=== PATIENT | male | born 1945 | race African-American/Black ===

== ENCOUNTER 2019-06-17 23:25 | Inpatient (IN) | payer MEDICARE, OTHER ==
[~2019-06-17] VITALS: Ht 185.4 cm; Wt 116.1 kg
[2019-06-18] MEDS ORDERED: IV NS 0.9% 500 ML BAG IV ONE
[2019-06-18 00:06] LABS: BASOPHILS # (AUTO) 0.2 /CMM (0.0-0.2); BASOPHILS % (AUTO) 1.7 % (0.0-2.0); EOSINOPHILS % (AUTO) 0.5 % (0.0-6.0); HEMATOCRIT 45 % (39-51); HEMOGLOBIN 14.8 g/dL (13.5-17.5); LYMPHOCYTES # (AUTO) 2.4 /CMM (0.8-4.8); LYMPHOCYTES % (AUTO) 16.7 % (20.0-44.0); MEAN CORPUSCULAR HGB CONC 33 g/dl (31.0-36.0); MEAN CORPUSCULAR VOLUME 89 fL (80-96); MONOCYTES # (AUTO) 1.1 /CMM (0.1-1.30); MONOCYTES % (AUTO) 7.6 % (2.0-12.0); NEUTROPHILS # (AUTO) 10.4 /CMM (1.8-8.9); NEUTROPHILS % (AUTO) 73.5 % (43.0-81.0); PLATELET COUNT (AUTO) 275 /CMM (150-450); RED BLOOD CELL COUNT(AUTO) 5.08 MIL/uL (4.5-6.0); WHITE BLOOD COUNT (AUTO) 14.1 K/uL (4.3-11.0)
--- NOTE | 2019-06-18 00:10 | NUR ---
PATIENT CAME TO ER BED 10 C/O 2x UNWITNESS FALL. PATIENT STATES HE WAS HOLDING ONTO THE HANDLE OF THE REFRIDGERATOR. DENIES ANY PAIN. AAOX4. NO SOB. BREATHING EVENLY AND UNLABORED ON ROOM AIR. CONNECTED TO MONITOR. Addendum: 06/18/19 at 0011 by MICHEL DENIES HITTING HEAD OR LOSING CONSCIOUSNESS.
[2019-06-18 00:20] LABS: ALANINE AMINOTRANSFERASE 31 U/L (12-78); ALBUMIN 3.8 g/dL (3.4-5.0); ALKALINE PHOSPHATASE 135 U/L (46-116); ASPARTATE AMINOTRANSFERASE 19 U/L (15-37); BILIRUBIN,DIRECT 0.1 mg/dL (0.0-0.2); BILIRUBIN,TOTAL 0.3 mg/dL (0.2-1.0); CALCIUM, SERUM 9.7 mg/dL (8.5-10.1); CARBON DIOXIDE 31 mmol/L (21-32); CHLORIDE 94 mmol/L (98-107); CREATININE 1.7 mg/dL (0.6-1.3); POTASSIUM 4.2 mmol/L (3.5-5.1); SODIUM SERUM 130 mmol/L (136-145); TOTAL PROTEIN, SERUM 8.2 g/dL (6.4-8.2); UREA NITROGEN, BLOOD 31 mg/dL (7-18)
[2019-06-18 00:22] LABS: GLUCOSE 410 mg/dL (74-106)
--- NOTE | 2019-06-18 00:25 | NUR ---
PATIENT RETURNED FROM CT
[2019-06-18] MEDS ORDERED: MAG HYDROX/AL HYDROX/SIMETH 30 ML UDC PO PRN (01:30)
[2019-06-18] MEDS ORDERED: Z GUARD REMEDY 2 OZ OINT TP PRN (01:30)
[2019-06-18] MEDS ORDERED: IV NS 0.9% 1,000 ML IV PRN (01:30)
[2019-06-18] MEDS ORDERED: ACETAMINOPHEN 325 MG TABLET PO PRN (01:30)
[2019-06-18] MEDS ORDERED: DEXTROSE 50%-WATER 50 ML DISP.SYRIN IV PRN (01:30)
[2019-06-18] MEDS ORDERED: ONDANSETRON HCL/PF 4 MG/2 ML VIAL IVP PRN (01:30)
[2019-06-18] MEDS ORDERED: MAGNESIUM HYDROXIDE 30 ML UDC PO PRN (01:30)
--- NOTE | 2019-06-18 01:50 | NUR ---
REPORT GIVEN TO JAX STRICKLAND FOR KEERTHI.
[2019-06-18 02:00] VITALS: BP 134/79
--- NOTE | 2019-06-18 02:00 | NUR ---
FOOTWEAR SALES LEADER NOTES Received patient from ER via gurney accompanied by 2 ER staffs. Admitted to tele 326-2 due to syncope under the service of TERELL Ojeda. Transferred to bed comfortably. Admission routine done. Pt's belongings inventory completed by the assigned SHUTTLE FIXER. Initial skin assessment done, no identified skin issues at this time. Home meds updated to the system ready for med recon. Admission orders noted and carried out. Patient denies any discomfort at this time. On tele monitor with NSR with BBB noted. Kept on bed clean, dry and comfortable. Call light within easy reach. On fall, aspiration and seizure precautions. Will continue to monitor accordingly.
[2019-06-18 02:44] LABS: APPEARANCE,URINE CLEAR (CLEAR); BILIRUBIN,URINE NEGATIVE (NEGATIVE); BLOOD, URINE SMALL Ery/uL (NEGATIVE); COLOR,URINE YELLOW (YELLOW); KETONES,URINE NEGATIVE (NEGATIVE); LEUKOCYTE ESTERASE ,URINE NEGATIVE (NEGATIVE); NITRITE, URINE NEGATIVE (NEGATIVE); PH,URINE 5.5 (5.0-8.0); PROTEIN,URINE NEGATIVE (NEGATIVE); UGLUCOSE >=1000 mg/dL (NEGATIVE); UROBILINOGEN,URINE 0.2 EU/dL (0.2)
[2019-06-18] MEDS ORDERED: NAPR220C15 PO (02:47)
[2019-06-18] MEDS ORDERED: ACET325C7 PO (02:47)
[2019-06-18] MEDS ORDERED: CHOL200076 PO (02:47)
[2019-06-18] MEDS ORDERED: HYDR25TA4 PO (02:47)
[2019-06-18] MEDS ORDERED: LISI10TA5 PO (02:47)
[2019-06-18] MEDS ORDERED: ATEN25TA PO (02:47)
[2019-06-18] MEDS ORDERED: GABA-534 PO (02:47)
[2019-06-18] MEDS ORDERED: LINA5TAB PO (02:47)
[2019-06-18] MEDS ORDERED: CLOP75TA15 PO (02:47)
[2019-06-18] MEDS ORDERED: INSU100V3 IJ (03:10)
[2019-06-18] MEDS ORDERED: INSU100V7 SQ (03:10)
[2019-06-18] MEDS ORDERED: LATA2.5D7 EACHEYE (03:11)
[2019-06-18 03:27] LABS: RBC,URINE 0-2 /HPF (0-2)
[2019-06-18 03:28] LABS: BACTERIA,URINE Few /HPF (None Seen); SQUAMOUS EPITHELIAL CELL,UR Rare /HPF (None Seen)
[2019-06-18 04:00] VITALS: BP 117/62
[2019-06-18] MEDS: BLOOD SUGAR DIAGNOSTIC 1 EACH STRIP IN SCH ×5 (05:45→21:12)
[2019-06-18] MEDS: INSULIN REGULAR, HUMAN 100 UNIT/ML 3 ML VIAL SQ PRN ×5 (06:17→21:15)
--- NOTE | 2019-06-18 06:37 | NUR ---
RN CLOSING NOTES Patient on bed, easily awaken. No complaints made at this time. All nursing needs attended, due meds given as ordered. Kept on bed clean, dry and comfortable. Call light within easy reach. On fall and aspiration precautions. Endorsed.
--- NOTE | 2019-06-18 07:30 | NUR ---
Tele/RN Opening Note Patient received AO x 3-4, able to responds all stimuli, denies dizziness, headache or any discomfort. Skin is warm to touch clean/dry, intact IV site. Respiratory even and unlabored with room air. Keep lower position of bed with elevated HOB. Call light within reach, will continue to monitor.
[2019-06-18 08:00] VITALS: BP 128/62
[2019-06-18] MEDS: PANTOPRAZOLE 40 MG TABLET.DR PO SCH (08:12)
[2019-06-18] MEDS: CHOLECALCIFEROL 1,000 UNIT TABLET (VIT D3) PO SCH (09:08)
[2019-06-18] MEDS: ACETAMINOPHEN ES 500 MG TABLET PO SCH ×2 (09:09→17:30)
[2019-06-18] MEDS: GABAPENTIN 300 MG CAPSULE PO SCH ×2 (09:10→17:30)
[2019-06-18] MEDS: LINAGLIPTIN 5 MG TABLET PO SCH (09:10)
[2019-06-18] MEDS: CLOPIDOGREL BISULFATE 75 MG TABLET PO SCH (09:10)
[2019-06-18] MEDS: ENOXAPARIN SODIUM 40 MG/0.4 ML DISP.SYRIN SQ SCH (09:11)
[2019-06-18 16:00] VITALS: BP 120/63
--- NOTE | 2019-06-18 18:29 | NUR ---
Tele/RN Closing note Patient in bed comfortably, AO x 3-4, denies pain or discomfort, also denies dizziness or lightheadedness. Respiratory even and unlabored with room air, no sob or distress observed. Skin is warm to touch, clean/dry, intact IV site, running NS at 75 ml/hr. Remain lower position of the bed with elevated HOB. Call light within reach, all needs met. Will endorse to night guard.
--- NOTE | 2019-06-18 19:00 | NUR ---
MS RN OPENING NOTES Received patient A/O x4, asleep, easily awaken. No complaints of pain/discomfort at this time. With IVF infusing well, no s/sx of infiltration noted. Kept on bed clean, dry and comfortable. Call light within easy reach. Will continue to monitor.
--- NOTE | 2019-06-18 19:10 | NUR ---
RN NOTES On tele monitor with NSR noted.
[2019-06-18 20:00] VITALS: BP 140/66
[2019-06-18] MEDS: LISINOPRIL (10MG) 10 MG TABLET PO SCH (21:12)
[2019-06-18] MEDS: ATENOLOL 25 MG TABLET PO SCH (21:12)
[2019-06-18] MEDS: LATANOPROST EYE DROP 0.005% 2.5 ML BOTTLE EACHEYE SCH (21:13)
--- NOTE | 2019-06-18 22:07 | NUR ---
RN NOTES Report given to EM Manning for KEERTHI.
--- NOTE | 2019-06-18 22:15 | NUR ---
RN OPENING NOTES RECEIVED PATIENT AWAKE IN BED A/OX3. NO SIGNS OF DISTRESS OR DISCOMFORT. BREATHING EVEN AND UNLABORED. ON TELE MONITOR WITH SR-BBB 71 NOTED. IV ACCESS IN RAC WITH NS INFUSING, PATENT AND INTACT, NO SIGNS OF REDNESS OR INFILTRATION. DENIES ANY PAIN. BED IN LOW LOCKED POSITION WITH SIDE RAILS X2. CALL LIGHT WITHIN REACH. WILL CONTINUE TO MONITOR.
[2019-06-19] VITALS: BP 122/64
[2019-06-19] MEDS: IV NS 0.9% 1,000 ML IV PRN ×2 (01:31→13:58)
[2019-06-19] MEDS: BLOOD SUGAR DIAGNOSTIC 1 EACH STRIP IN SCH ×6 (01:31→21:09)
[2019-06-19] MEDS: INSULIN REGULAR, HUMAN 100 UNIT/ML 3 ML VIAL SQ PRN ×6 (01:33→21:12)
[2019-06-19 04:00] VITALS: BP 125/68
[2019-06-19 06:15] LABS: BASOPHILS # (AUTO) 0.1 /CMM (0.0-0.2); BASOPHILS % (AUTO) 0.5 % (0.0-2.0); EOSINOPHILS % (AUTO) 1.2 % (0.0-6.0); HEMATOCRIT 42 % (39-51); HEMOGLOBIN 13.6 g/dL (13.5-17.5); LYMPHOCYTES % (AUTO) 35.8 % (20.0-44.0); MEAN CORPUSCULAR HGB CONC 32 g/dl (31.0-36.0); MEAN CORPUSCULAR VOLUME 89 fL (80-96); MONOCYTES # (AUTO) 0.9 /CMM (0.1-1.30); MONOCYTES % (AUTO) 8.4 % (2.0-12.0); NEUTROPHILS % (AUTO) 54.1 % (43.0-81.0); PLATELET COUNT (AUTO) 249 /CMM (150-450); RED BLOOD CELL COUNT(AUTO) 4.75 MIL/uL (4.5-6.0); WHITE BLOOD COUNT (AUTO) 11.1 K/uL (4.3-11.0)
[2019-06-19 06:52] LABS: THYROID STIMULATING HORMONE 1.999 uIU/mL (0.358-3.74)
[2019-06-19 06:55] LABS: ALBUMIN 2.9 g/dL (3.4-5.0); BILIRUBIN,TOTAL 0.2 mg/dL (0.2-1.0); CREATININE 1.1 mg/dL (0.6-1.3); MAGNESIUM 2.3 mg/dL (1.8-2.4); PHOSPHORUS 2.2 mg/dL (2.5-4.9); POTASSIUM 3.9 mmol/L (3.5-5.1); TOTAL PROTEIN, SERUM 7.1 g/dL (6.4-8.2)
--- NOTE | 2019-06-19 06:57 | NUR ---
RN CLOSING NOTES PATIENT RESTING IN BED, EASILY AROUSABLE A/OX3. NO SIGNS OF DISTRESS OR DISCOMFORT. BREATHING EVEN AND UNLABORED. ON TELE MONITOR WITH SR-BBB 60 NOTED. IV ACCESS IN RAC WITH NS INFUSING, PATENT AND INTACT, NO SIGNS OF REDNESS OR INFILTRATION. DENIES ANY PAIN. ALL NEEDS MET. NO SIGNIFICANT CHANGES THROUGH THE NIGHT. BED IN LOW LOCKED POSITION WITH SIDE RAILS X2. CALL LIGHT WITHIN REACH. WILL ENDORSE TO AM SHIFT FOR KEERTHI.
--- NOTE | 2019-06-19 07:30 | NUR ---
WEATHERSTRIP MACHINE OPERATOR NOTES PT IN BED, AWAKE, ALERT AND ORIENTED, NO COMPLAINT OF PAIN, RESPIRATIONS NORMAL, IV FLUIDS INFUSING WELL, CALL LIGHT WITHIN REACH, KEPT WARM AND COMFORTABLE IN BED.
[2019-06-19 08:00] VITALS: BP 121/69
[2019-06-19] MEDS: LINAGLIPTIN 5 MG TABLET PO SCH (08:37)
[2019-06-19] MEDS: PANTOPRAZOLE 40 MG TABLET.DR PO SCH (08:37)
[2019-06-19] MEDS: CHOLECALCIFEROL 1,000 UNIT TABLET (VIT D3) PO SCH (08:37)
[2019-06-19] MEDS: CLOPIDOGREL BISULFATE 75 MG TABLET PO SCH (08:37)
[2019-06-19] MEDS: ACETAMINOPHEN ES 500 MG TABLET PO SCH ×2 (08:37→16:34)
[2019-06-19] MEDS: GABAPENTIN 300 MG CAPSULE PO SCH ×2 (08:37→16:34)
[2019-06-19] MEDS: ENOXAPARIN SODIUM 40 MG/0.4 ML DISP.SYRIN SQ SCH (08:40)
[2019-06-19] MEDS: NEUTRA PHOS 1 POWD.PACKET PO SCH ×2 (09:26→16:34)
--- NOTE | 2019-06-19 10:20 | NUR ---
SENIOR BENEFITS MANAGER NOTES PT SEEN AND EXAMINED BY DR. LUEVANO, PLAN OF CARE DISCUSSED WITH PT, VERBALIZED UNDERSTANDING, PT ALSO SEEN BY PHYSICAL THERAPIST, TOLERATED TREATMENT WELL.
[2019-06-19 16:00] VITALS: BP 118/83
[2019-06-19] MEDS: DORZOLAMIDE OPTH 2% 10 ML BOTTLE EACHEYE SCH (16:34)
[2019-06-19] MEDS: TIMOLOL 0.5% SOLN OPHTH 5 ML BOTTLE EACHEYE SCH (16:35)
--- NOTE | 2019-06-19 18:06 | NUR ---
ELEMENTARY SCHOOL TEACHER'S AIDE NOTES PT IN BED, RESTING, NO COMPLAINT OF PAIN OR ANY DISCOMFORT, RESPIRATIONS NORMAL, IV FLUIDS INFUSING WELL, DINNER SERVED, TOLERATES CURRENT DIET, WITH GOOD PO INTAKE, REMAINS ON TELE MONITORING, SR WITH BBB AT 61 BPM, PM MEDS GIVEN, INSULIN ADMINISTERED PER SLIDING SCALE ORDERED, CALL LIGHT KEPT WITHIN REACH, NEEDS ATTENDED.
--- NOTE | 2019-06-19 19:45 | NUR ---
ENTRY LEVEL SOFTWARE ENGINEER OPEN NOTES PATIENT IS IN BED. APPEARS TO BE COMFORTABLE/ NO COMPLAINTS OF PAIN AT THIS TIME. BED IS IN LOWEST LOCKED POSITION WITH SIDE RAILS UP, SEMI FOWLERS. ON ROOM AIR, NO SOB/ ACUTE RESPIRATORY DISTRESS NOTED. CALL LIGHT IS WITHIN REACH. WILL CONTINUE TO MONITOR.
[2019-06-19 20:00] VITALS: BP 119/52
[2019-06-19 20:30] VITALS: BP 119/59
[2019-06-19] MEDS: LATANOPROST EYE DROP 0.005% 2.5 ML BOTTLE EACHEYE SCH (21:27)
--- NOTE | 2019-06-19 21:42 | NUR ---
ROLLER HAND NOTES HELD LISINOPRIL 10MG PO QHS PER DR. KNOX'S MIRA'S ORDERS. NOTED AND CARRIED OUT.
[2019-06-19] MEDS: ATENOLOL 25 MG TABLET PO SCH (21:52)
[2019-06-19] MEDS: LISINOPRIL (10MG) 10 MG TABLET PO SCH (21:57)
[2019-06-19] MEDS ORDERED: INSULIN GLARGINE, 100 UNIT/ML CARTRIDGE SQ SCH (22:00)
[2019-06-20] VITALS (9 sets, daily range): BP systolic 118–181; BP diastolic 58–89
[2019-06-20] MEDS: INSULIN REGULAR, HUMAN 100 UNIT/ML 3 ML VIAL SQ PRN ×6 (01:10→21:05)
[2019-06-20] MEDS: BLOOD SUGAR DIAGNOSTIC 1 EACH STRIP IN SCH ×6 (01:13→21:00)
[2019-06-20] MEDS: IV NS 0.9% 1,000 ML IV PRN ×2 (06:32→19:49)
--- NOTE | 2019-06-20 06:46 | NUR ---
COMPUTER SYSTEMS DESIGN ANALYST CLOSING NOTES PATIENT IS LAYING IN BED, APPEARS COMFORTABLE, NO SOB/ ACUTE RESPIRATORY DISTRESS NOTED. ON ROOM AIR SATURATING AT 98%. NO COMPLAINTS OF PAIN AT THIS TIME. CALL LIGHT IS WITHIN REACH. BED IS IN LOWEST LOCKED POSITION WITH SIDE RAILS UP, X2, SEMI FOWLERS. IV ON RIGHT AC #20G IS INTACT RUNNING NS @ 125 MLS/HR. WILL ENDORSE TO AM NURSE.
[2019-06-20 06:52] LABS: BASOPHILS % (AUTO) 0.3 % (0.0-2.0); EOSINOPHILS % (AUTO) 1.6 % (0.0-6.0); HEMATOCRIT 41 % (39-51); HEMOGLOBIN 13.5 g/dL (13.5-17.5); LYMPHOCYTES # (AUTO) 3.3 /CMM (0.8-4.8); LYMPHOCYTES % (AUTO) 33.2 % (20.0-44.0); MEAN CORPUSCULAR HGB CONC 33 g/dl (31.0-36.0); MEAN CORPUSCULAR VOLUME 89 fL (80-96); MONOCYTES # (AUTO) 0.9 /CMM (0.1-1.30); MONOCYTES % (AUTO) 8.9 % (2.0-12.0); NEUTROPHILS # (AUTO) 5.6 /CMM (1.8-8.9); PLATELET COUNT (AUTO) 212 /CMM (150-450); RED BLOOD CELL COUNT(AUTO) 4.63 MIL/uL (4.5-6.0)
[2019-06-20 07:04] LABS: CALCIUM, SERUM 8.4 mg/dL (8.5-10.1); CARBON DIOXIDE 26 mmol/L (21-32); CHLORIDE 102 mmol/L (98-107); GLUCOSE 245 mg/dL (74-106); SODIUM SERUM 136 mmol/L (136-145); UREA NITROGEN, BLOOD 14 mg/dL (7-18)
--- NOTE | 2019-06-20 07:12 | NUR ---
DIRECTOR OF PRIMARY CARE OPENING NOTES RECEIVED PT IS IN BED, AWAKE WITH HOB ELEVATED AT THIS TIME. PT IS AOX4. PT ON TELE MONITOR WITH SR IN THE 60s WITH NO COMPLAINS OF CARDIAC DISTRESS. ON RA AND SATURATING WELL. IV ACCESS ON RAC G#20 INTACT AND PATEAPPEARS TO BE COMFORTABLE/ NO COMPLAINTS OF PAIN AT THIS TIME. BED IS IN LOWEST LOCKED POSITION WITH SIDE RAILS UP, SEMI FOWLERS. ON ROOM AIR, NO SOB/ ACUTE RESPIRATORY DISTRESS NOTED. CALL LIGHT IS WITHIN REACH. WILL CONTINUE TO MONITOR. Addendum: 06/20/19 at 0722 by JOYA MATTHEWS RN DIRECTOR OF PRIMARY CARE OPENING NOTES RECEIVED PT IS IN BED, AWAKE WITH HOB ELEVATED AT THIS TIME. PT IS AOX4. PT ON TELE MONITOR WITH SR IN THE 60s WITH NO COMPLAINS OF CARDIAC DISTRESS. ON RA AND SATURATING WELL. IV ACCESS ON RAC G#20 INTACT, PATENT AND INFUSING WELL. NO SIGNS OF INFILTRATION NOTED. PT APPEARS COMFORTABLE WITH NO SIGNS OF DISTRESS AT THIS TIME. BED LOCKED LOWEST POSITION WITH SIDE RAILS UP, CALL LIGHT IS WITHIN REACH. WILL CONTINUE TO MONITOR.
[2019-06-20] MEDS: PANTOPRAZOLE 40 MG TABLET.DR PO SCH (07:47)
--- NOTE | 2019-06-20 08:04 | NUR ---
RN NOTES CHECKED PT'S ORTHOSTATIC BP; LYING 135/59. P 62, SITTING 181/84, P 59 AND STANDING 177/89, P 68. DR LUEVANO ON UNIT AND MADE AWARE. WILL CONTINUE TO MONITOR.
[2019-06-20] MEDS: LINAGLIPTIN 5 MG TABLET PO SCH (08:17)
[2019-06-20] MEDS: CHOLECALCIFEROL 1,000 UNIT TABLET (VIT D3) PO SCH (08:17)
[2019-06-20] MEDS: CLOPIDOGREL BISULFATE 75 MG TABLET PO SCH (08:17)
[2019-06-20] MEDS: GABAPENTIN 300 MG CAPSULE PO SCH ×2 (08:18→16:49)
[2019-06-20] MEDS: ACETAMINOPHEN ES 500 MG TABLET PO SCH ×2 (08:18→16:49)
[2019-06-20] MEDS: ENOXAPARIN SODIUM 40 MG/0.4 ML DISP.SYRIN SQ SCH (08:19)
[2019-06-20] MEDS: TIMOLOL 0.5% SOLN OPHTH 5 ML BOTTLE EACHEYE SCH ×2 (08:23→16:49)
[2019-06-20] MEDS: DORZOLAMIDE OPTH 2% 10 ML BOTTLE EACHEYE SCH ×2 (08:23→16:50)
[2019-06-20 11:12] LABS: *SPE A/G RATIO 0.9 (0.7-1.7); *SPE ALBUMIN 3.2 g/dL (2.9-4.4); *SPE ALPHA-1-GLOBULIN 0.2 g/dL (0.0-0.4); *SPE ALPHA-2-GLOBULIN 0.8 g/dL (0.4-1.0); *SPE BETA GLOBULIN 1.1 g/dL (0.7-1.3); *SPE GLOBULIN, TOTAL 3.4 g/dL (2.2-3.9); *SPE M-SPIKE Not Observed g/dL (Not Observed); *SPEGAMMA GLOBULIN 1.3 g/dL (0.4-1.8)
--- NOTE | 2019-06-20 19:02 | NUR ---
RN CLOSING NOTES PT AWAKE IN BED WITH HOB ELEVATED SEMI FOWLERS POSITION AT THIS TIME, APPEARS COMFORTABLE, NO SOB/ ACUTE RESPIRATORY DISTRESS NOTED. ON ROOM AIR SATURATING AT 98%. NO COMPLAINTS OF PAIN AT THIS TIME. CALL LIGHT IS WITHIN REACH. BED IN LOCKED LOWEST POSITION WITH SIDE RAILS UP X2, IV ON RIGHT AC #20G IS INTACT RUNNING NS @ 125 MLS/HR. WILL ENDORSE TONIGHT NURSE
--- NOTE | 2019-06-20 19:45 | NUR ---
MS RN OPEN NOTES PATIENT SLEEPING IN BED. BED IS IN LOWEST LOCKED POSITION WITH SIDE RAILS UP X2. ON ROOM AIR, NO SOB/ ACUTE RESPIRATORY DISTRESS NOTED. APPEARS TO BE COMFORTABLE/ NO COMPLAINTS OF PAIN AT THIS TIME. CALL LIGHT IS WITHIN REACH. WILL CONTINUE TO MONITOR.
[2019-06-20] MEDS: ATENOLOL 25 MG TABLET PO SCH (21:01)
[2019-06-20] MEDS: LATANOPROST EYE DROP 0.005% 2.5 ML BOTTLE EACHEYE SCH (21:01)
[2019-06-20] MEDS ORDERED: INSULIN GLARGINE, 100 UNIT/ML CARTRIDGE SQ SCH (22:00)
[2019-06-20] MEDS: LISINOPRIL (10MG) 10 MG TABLET PO SCH (22:00)
--- NOTE | 2019-06-20 22:00 | NUR ---
MS RN NOTES HELD LISINOPRIL 10MG PO QHS PER DR. MEYERS'S ORDERS.
[2019-06-21] MEDS: BLOOD SUGAR DIAGNOSTIC 1 EACH STRIP IN SCH ×4 (01:04→12:36)
[2019-06-21] MEDS: INSULIN REGULAR, HUMAN 100 UNIT/ML 3 ML VIAL SQ PRN ×4 (01:07→12:41)
[2019-06-21] MEDS: IV NS 0.9% 1,000 ML IV PRN (05:41)
[2019-06-21 06:20] LABS: BASOPHILS % (AUTO) 0.4 % (0.0-2.0); EOSINOPHILS % (AUTO) 1.9 % (0.0-6.0); HEMATOCRIT 40 % (39-51); HEMOGLOBIN 12.8 g/dL (13.5-17.5); LYMPHOCYTES # (AUTO) 3.1 /CMM (0.8-4.8); LYMPHOCYTES % (AUTO) 31.2 % (20.0-44.0); MEAN CORPUSCULAR HGB CONC 32 g/dl (31.0-36.0); MEAN CORPUSCULAR VOLUME 88 fL (80-96); MONOCYTES # (AUTO) 0.7 /CMM (0.1-1.30); NEUTROPHILS # (AUTO) 5.9 /CMM (1.8-8.9); NEUTROPHILS % (AUTO) 59.5 % (43.0-81.0); PLATELET COUNT (AUTO) 243 /CMM (150-450); RED BLOOD CELL COUNT(AUTO) 4.48 MIL/uL (4.5-6.0); WHITE BLOOD COUNT (AUTO) 9.8 K/uL (4.3-11.0)
--- NOTE | 2019-06-21 06:22 | NUR ---
MS RN CLOSING NOTES PATIENT LAYING IN BED. ON ROOM AIR, NO SOB/ ACUTE RESPIRATORY DISTRESS NOTED. BED IS IN LOWEST LOCKED POSITION WITH SIDE RAILS UP X2. A/O X4. NO COMPLAINTS OF PAIN AT THIS TIME. ALL DUE INSULINS GIVEN. IV ON RIGHT AC #20G IS PATENT AND INTACT RUNNING NS @ 125MLS/HR. CALL LIGHT IS WITHIN REACH. WILL ENDORSE TO AM NURSE.
[2019-06-21 06:31] LABS: CALCIUM, SERUM 8.2 mg/dL (8.5-10.1); CREATININE 1.1 mg/dL (0.6-1.3)
[2019-06-21] MEDS ORDERED: INSU100I30 SQ (06:52)
[2019-06-21] MEDS ORDERED: INSU100V28 SQ (06:52)
--- NOTE | 2019-06-21 07:26 | NUR ---
MS RN NOTES RECEIVED PATIENT IN BED RESTING COMFORTABLY IN MODERATE HIGH BACK REST. A/O X4. ON ROOM AIR, NO SOB/ ACUTE RESPIRATORY DISTRESS NOTED AT THIS TIME. IV ON RIGHT AC #20G IS PATENT AND INTACT RUNNING NS @ 125MLS/HR. SAFETY MEASURES IN PLACE, BED IS IN LOWEST LOCKED POSITION WITH SIDE RAILS UP X2. CALL LIGHT IS WITHIN REACH. WILL CONTINUE TO MONITOR.
[2019-06-21 08:00] VITALS: BP 137/52
[2019-06-21] MEDS: GABAPENTIN 300 MG CAPSULE PO SCH (08:20)
[2019-06-21] MEDS: ACETAMINOPHEN ES 500 MG TABLET PO SCH (08:20)
[2019-06-21] MEDS: LINAGLIPTIN 5 MG TABLET PO SCH (08:21)
[2019-06-21] MEDS: CHOLECALCIFEROL 1,000 UNIT TABLET (VIT D3) PO SCH (08:21)
[2019-06-21] MEDS: PANTOPRAZOLE 40 MG TABLET.DR PO SCH (08:21)
[2019-06-21] MEDS: CLOPIDOGREL BISULFATE 75 MG TABLET PO SCH (08:21)
[2019-06-21] MEDS: ENOXAPARIN SODIUM 40 MG/0.4 ML DISP.SYRIN SQ SCH (08:24)
[2019-06-21] MEDS: DORZOLAMIDE OPTH 2% 10 ML BOTTLE EACHEYE SCH (08:35)
[2019-06-21] MEDS: TIMOLOL 0.5% SOLN OPHTH 5 ML BOTTLE EACHEYE SCH (08:35)
--- NOTE | 2019-06-21 13:10 | NUR ---
m/s clipper machine operator: notes primary nurse on break, ambulance here and report given to one of the crew. pt [facility]. pt stable for discharge. all d'c papers given to emt. h/l removed.
--- NOTE | 2019-06-21 13:32 | NUR ---
m/s routeman: notes primary nurse on break. discharge pt to [facility] via ambulance in stable condition with all d'c papers and belongings.
== END 2019-06-21 13:32 | DRG 637 ==
LOC: ER 23:26 → TELE 06-18 01:22 → MED 06-20 09:40
PROVIDERS: ADMIT Family Medicine; ATTEND Family Medicine
DX: E11.65 Type 2 diabetes mellitus with hyperglycemia (principal); N17.0 Acute kidney failure with tubular necrosis; E87.1 Hypo-osmolality and hyponatremia; E86.1 Hypovolemia; E11.51 Type 2 diabetes mellitus with diabetic peripheral angiopathy without gangrene; E11.22 Type 2 diabetes mellitus with diabetic chronic kidney disease; I12.9 Hypertensive chronic kidney disease with stage 1 through stage 4 chronic kidney disease, or unspecified chronic kidney disease; N18.9 Chronic kidney disease, unspecified; Z79.4 Long term (current) use of insulin; Z83.3 Family history of diabetes mellitus; D72.829 Elevated white blood cell count, unspecified; E86.9 Volume depletion, unspecified; R94.31 Abnormal electrocardiogram [ECG] [EKG]; E83.39 Other disorders of phosphorus metabolism
CPT/HCPCS: 36415; 70450-TC; 71045-TC; 80048-TC; 80053-TC; 80061-TC; 80076-TC; 81000-TC; 82962-TC; 83735-TC; 84100-TC; 84155; 84165; 84443-TC; 84484-TC; 85025-TC; 85730-TC; 87040-TC; 87081-TC; 93307-TC; 93880-TC; 97110-TC; 97116-TC; 97530-TC; G0378; J1650; J1815; J7030; J7040